=== PATIENT | female | born 1960 | race African-American/Black ===

== ENCOUNTER 2018-12-07 14:19 | Emergency (ER) | payer OTHER, MEDICAID ==
[~2018-12-07] VITALS: Ht 157.5 cm; Wt 69.4 kg
[2018-12-07 14:53] VITALS: Ht 157.5 cm; Wt 69.4 kg
[2018-12-07 17:56] VITALS: BP 119/69
== END 2018-12-07 17:56 | disposition home or self-care (01) ==
LOC: ED 14:19
DX: S46.911A Strain of unspecified muscle, fascia and tendon at shoulder and upper arm level, right arm, initial encounter (principal); M25.562 Pain in left knee; M25.561 Pain in right knee; M79.7 Fibromyalgia; Z88.6 Allergy status to analgesic agent; Z88.2 Allergy status to sulfonamides; V48.0XXA Car driver injured in noncollision transport accident in nontraffic accident, initial encounter; Y93.I9 Activity, other involving external motion; Y92.89 Other specified places as the place of occurrence of the external cause; Y99.8 Other external cause status